=== PATIENT | male | born 1975 | race Caucasian/White ===

== ENCOUNTER → 2022-12-23 | Emergency (ER) | payer OTHER ==
[~2022-12-23] VITALS: Ht 180.3 cm; Wt 78.0 kg
[~2022-12-23] MED LIST: IBUP-2213 PO
[2022-12-23 15:13] VITALS: BP 120/79; PULSE 68; RESP 16; TEMP 98.4; O2SAT 100
--- NOTE | 2022-12-23 17:06 | NUR ---
ABIELP APPLIED TO R ANKLE. + CMS. PT GIVEN CRUTCHES AND RETURNED SAFE DEMONSTRATION.
--- NOTE | 2022-12-23 17:07 | NUR ---
Patient discharged with v/s stable. Written and verbal after care instructions given and explained. Patient verbalized understanding. Ambulatory with steady gait. All questions addressed prior to discharge. Advised to follow up with PMD.
== END | disposition home or self-care (01) ==
LOC: MED 14:44
DX: S93.401A Sprain of unspecified ligament of right ankle, initial encounter (principal); Z79.899 Other long term (current) drug therapy; W22.8XXA Striking against or struck by other objects, initial encounter; Y93.89 Activity, other specified; Y92.89 Other specified places as the place of occurrence of the external cause; Y99.8 Other external cause status
CPT/HCPCS: 73610; 73630; 99284

== ENCOUNTER 2023-06-06 16:05 | Emergency (ER) | payer OTHER ==
[~2023-06-06] VITALS: Ht 180.3 cm; Wt 79.4 kg
[2023-06-06 17:32] VITALS: BP 118/71; PULSE 64; RESP 18; TEMP 98.7; O2SAT 99
[2023-06-06] MEDS ORDERED: CYCL-711 PO (18:21)
[2023-06-06] MEDS ORDERED: NAPR-54 PO (18:21)
[2023-06-06] MEDS ORDERED: LID5T TP (18:21)
[2023-06-06] MEDS ORDERED: KETOROLAC 30 MG/ML VIAL IM ONE (18:25)
[2023-06-06 19:20] VITALS: BP 121/70; PULSE 64; RESP 19; TEMP 98.7; O2SAT 100
== END 2023-06-06 19:20 | disposition home or self-care (01) ==
LOC: MED 16:05
DX: S49.82XA Other specified injuries of left shoulder and upper arm, initial encounter (principal); X58.XXXA Exposure to other specified factors, initial encounter; Y93.89 Activity, other specified; Y92.89 Other specified places as the place of occurrence of the external cause; Y99.8 Other external cause status
CPT/HCPCS: 96372; 99283; J1885